=== PATIENT | male | born 1970 | race Caucasian/White ===

== ENCOUNTER 2020-06-02 03:57 | Emergency (ER) | payer MEDICAID ==
[~2020-06-02] VITALS: Ht 175.3 cm; Wt 81.2 kg
[2020-06-02 04:06] VITALS: BP 135/72
--- NOTE | 2020-06-02 04:10 | NUR ---
PT AMBULATED TO BED 03 WITH STEADY GAIT.
--- NOTE | 2020-06-02 04:27 | NUR ---
Dr. Baumann examining patient.
[2020-06-02] MEDS ORDERED: ONDANSETRON 4 MG/2 ML VIAL IVP ONE (04:35)
[2020-06-02] MEDS ORDERED: MORPHINE SULFATE 4 MG/ML SYR IVP ONE ×2 (04:35→06:15)
--- NOTE | 2020-06-02 04:37 | NUR ---
PT C/O R FLANK PAIN WITH PAINFUL URINATION X 2 DAYS. BLOOD IN URINE. +N/V, STATES HE'S HAD BLOOD IN HIS EMESIS, YESTERDAY HE VOMITED X 6. STATES PAIN IS 10/10 AND IS SHARP STABBING PAIN. DENIES ANY FEVERS. PT HAS HX OF PRIOR KIDNEY STONES. PT HAS STAGE 3 COLON CANCER WHICH HAS METASTISIZED, HE IS CURRENTLY UNDERGOING RADIATION AND CHEMO THERAPY. AFEBRILE, DENIES SOB. BED IN LOWEST POSITION AND SIDERAIL UP X 1. ALLERGIES - TORADOL, NSAIDS HX - HTN, COLON CA
--- NOTE | 2020-06-02 04:38 | NUR ---
URINE COLLECTED, DIP DONE RESULTS SHOWN TO MD HOLBROOK
--- NOTE | 2020-06-02 05:04 | NUR ---
IV ESTABLISHED, LABS DRAWN AND TAKEN TO LAB ALONG WITH UA
--- NOTE | 2020-06-02 05:19 | NUR ---
PT STATES PAIN NOW 05/20. MD HOLBROOK NOTIFIED
--- NOTE | 2020-06-02 05:48 | NUR ---
PT STATES PAIN HAS COME BACK 07/20, MD HOLBROOK AWARE, ERIKA OSUNA RECEIVED
[2020-06-02 06:09] LABS: BASOPHILS % (AUTO) 0.3 % (0.0-2.0); EOSINOPHILS % (AUTO) 0.8 % (0.0-4.0); HEMATOCRIT 33.3 % (36-52); HEMOGLOBIN 10.8 g/dL (12.0-18.0); LYMPHOCYTES # (AUTO) 1.2 K/uL (2.0-11.5); LYMPHOCYTES % (AUTO) 28.2 % (20.5-51.1); MEAN CORPUSCULAR HEMOGLOBIN 27 pg (27-31); MEAN CORPUSCULAR HGB CONC 32 g/dL (33-37); MEAN CORPUSCULAR VOLUME 84.5 fL (80-94); MONOCYTES # (AUTO) 0.4 K/uL (0.8-1.0); MONOCYTES % (AUTO) 8.6 % (1.7-9.3); NEUTROPHILS # (AUTO) 2.5 K/uL (1.8-7.7); NEUTROPHILS % (AUTO) 62.1 % (42.2-75.2); PLATELET COUNT (AUTO) 225 K/uL (140-450); RED BLOOD CELL COUNT(AUTO) 3.95 MIL/uL (4.20-6.10); WHITE BLOOD COUNT (AUTO) 4.1 K/uL (4.8-10.8)
[2020-06-02 06:32] LABS: ALBUMIN 4.3 g/dL (3.4-5.0); ANION GAP 12.4 (8-16); CARBON DIOXIDE 27.7 mmol/L (21-32); CREATININE 0.7 mg/dL (0.6-1.3); POTASSIUM 3.1 mmol/L (3.5-5.1); TOTAL BILIRUBIN 0.9 mg/dL (0.0-1.0)
[2020-06-02 06:36] LABS: APPEARANCE,URINE CLEAR (CLEAR); BILIRUBIN,URINE NEGATIVE (NEGATIVE); BLOOD, URINE 2+ (NEGATIVE); COLOR,URINE YELLOW (YELLOW); LEUKOCYTE ESTERASE ,URINE NEGATIVE (NEGATIVE); NITRITE, URINE NEGATIVE (NEGATIVE); UGLUCOSE NEGATIVE (NEGATIVE)
[2020-06-02 07:00] LABS: WBC,URINE 0-5 /HPF (0-5)
[2020-06-02 07:08] VITALS: BP 130/70
--- NOTE | 2020-06-02 07:12 | NUR ---
Patient discharged with v/s stable. Written and verbal after care instructions given and explained. Patient verbalized understanding. Ambulatory with steady gait. All questions addressed prior to discharge. Advised to follow up with PMD.
== END 2020-06-02 07:12 | disposition home or self-care (01) ==
LOC: MED 03:57
DX: G89.29 Other chronic pain (principal); R31.9 Hematuria, unspecified; R10.9 Unspecified abdominal pain; I10 Essential (primary) hypertension; Z85.038 Personal history of other malignant neoplasm of large intestine; Z88.8 Allergy status to other drugs, medicaments and biological substances
CPT/HCPCS: 36415; 74176; 80053; 81001; 85025; 87086; 96374; 96375; 96376; 99284; J2270; J2405

== ENCOUNTER 2020-06-03 15:09 | Emergency (ER) | payer MEDICAID ==
[~2020-06-03] VITALS: Ht 172.7 cm; Wt 83.0 kg
[2020-06-03 15:15] VITALS: BP 121/42
[2020-06-03] MEDS ORDERED: NACL 0.9% 1,000 ML IV ONE (15:43)
[2020-06-03] MEDS ORDERED: ONDANSETRON 4 MG/2 ML VIAL IVP ONE (15:45)
[2020-06-03] MEDS ORDERED: MORPHINE SULFATE 4 MG/ML SYR IVP ONE (15:45)
--- NOTE | 2020-06-03 15:45 | NUR ---
DR. WALKER AT BEDSIDE.
--- NOTE | 2020-06-03 16:01 | NUR ---
STAT BLOOD DRAWN AND GIVEN TO PHLEB FOR PATTERN MARKER
[2020-06-03 16:06] LABS: BASOPHILS % (AUTO) 0.3 % (0.0-2.0); HEMATOCRIT 31.2 % (36-52); HEMOGLOBIN 10.1 g/dL (12.0-18.0); LYMPHOCYTES # (AUTO) 1.2 K/uL (2.0-11.5); LYMPHOCYTES % (AUTO) 31.4 % (20.5-51.1); MEAN CORPUSCULAR HEMOGLOBIN 27 pg (27-31); MEAN CORPUSCULAR HGB CONC 32 g/dL (33-37); MEAN CORPUSCULAR VOLUME 84.8 fL (80-94); MONOCYTES # (AUTO) 0.4 K/uL (0.8-1.0); MONOCYTES % (AUTO) 11.1 % (1.7-9.3); NEUTROPHILS # (AUTO) 2.2 K/uL (1.8-7.7); NEUTROPHILS % (AUTO) 56.2 % (42.2-75.2); PLATELET COUNT (AUTO) 191 K/uL (140-450); RED BLOOD CELL COUNT(AUTO) 3.68 MIL/uL (4.20-6.10); RED CELL DISTRIBUTION WIDTH 18.6 % (11.6-13.7); WHITE BLOOD COUNT (AUTO) 3.9 K/uL (4.8-10.8)
--- NOTE | 2020-06-03 16:06 | NUR ---
49 Y/M PRESENTS TO ED C C/O R FLANK PAIN X 5 DAYS, WITH R GROIN HERNIA. PT REPORTS HE WAS SEEN IN THE ED X 5 DAYS AGO, HAD CT DONE AND TOLD THAT HERNIA "POPPED OUT" PTS HERNIA WAS MANIPULATED BY ERMMendy. PT ALSO REPORTS VOMITING BLOOD X 2 DAY. PT DENIES COUGH, SOB OR FEVER. DENEIS ANY DYSURIA OR HEMATURIA. PMH- STAGE 3 COLON CA, SPINAL CORD INJURY, APPENDECTOMY, STENT PLACED TO R KIDNEY
[2020-06-03 16:23] LABS: ANION GAP 15.1 (8-16); CARBON DIOXIDE 26.4 mmol/L (21-32); CREATININE 0.8 mg/dL (0.6-1.3); POTASSIUM 3.5 mmol/L (3.5-5.1)
[2020-06-03 16:28] LABS: ALBUMIN 3.8 g/dL (3.4-5.0); TOTAL BILIRUBIN 0.6 mg/dL (0.0-1.0)
--- NOTE | 2020-06-03 16:39 | NUR ---
PT UNABLE TO VOID AT THIS TIME, URINAL AT BEDSIDE.
--- NOTE | 2020-06-03 16:40 | NUR ---
NADR, PT REPORTS DECREASED PAIN
[2020-06-03 17:01] LABS: APPEARANCE,URINE CLEAR (CLEAR); BILIRUBIN,URINE NEGATIVE (NEGATIVE); BLOOD, URINE 2+ (NEGATIVE); COLOR,URINE YELLOW (YELLOW); LEUKOCYTE ESTERASE ,URINE NEGATIVE (NEGATIVE); NITRITE, URINE NEGATIVE (NEGATIVE); UGLUCOSE NEGATIVE (NEGATIVE)
[2020-06-03 17:06] LABS: RBC,URINE 11-20 (MOD) /HPF (0-5); WBC,URINE 0-5 /HPF (0-5)
[2020-06-03 17:25] VITALS: BP 121/42
--- NOTE | 2020-06-03 17:25 | NUR ---
Patient discharged with v/s stable. Written and verbal after care instructions given and explained. Patient alert, oriented and verbalized understanding of instructions. Ambulatory with steady gait. All questions addressed prior to discharge. ID band removed. Patient advised to follow up with PMD. Rx of NORCO, AND COALCE given. Patient educated on indication of medication including possible reaction and side effects. Opportunity to ask questions provided and answered.
== END 2020-06-03 17:25 | disposition home or self-care (01) ==
LOC: MED 15:09
DX: R10.9 Unspecified abdominal pain (principal); I10 Essential (primary) hypertension; Z90.49 Acquired absence of other specified parts of digestive tract; Z88.8 Allergy status to other drugs, medicaments and biological substances; Z85.038 Personal history of other malignant neoplasm of large intestine
CPT/HCPCS: 36415; 80053; 81001; 83690; 85025; 87086; 96361; 96374; 96375; 99284; J2270; J2405; J7030

== ENCOUNTER 2020-06-04 18:03 | Emergency (ER) | payer MEDICAID ==
[~2020-06-04] VITALS: Ht 175.3 cm; Wt 77.1 kg
[2020-06-04 18:13] VITALS: BP 124/59
--- NOTE | 2020-06-04 18:28 | NUR ---
PT ADMITS KNOWN TO HAVE KIDNEY STONES--SEEN THIS AM SAME COMPLAINT 0F FLANK PAIN, RIGHT INGUINAL PAIN ---PT ADDS UNABLE TO FILL HIS RX PERCOCETS AND PAIN HAS GOTTEN WORSE TO A POINT HE IS VOMITING BLOOD NOW--ALL DAY TODAY AFTER DC APPEAR JITTERY, UNABL TO STAY STILL IN [facility]
[2020-06-04 18:40] VITALS: BP 124/59
--- NOTE | 2020-06-04 18:41 | NUR ---
MD SPOKE WITH PT AT LENGTH IN ROOM---PT DID NOT WANT TO CONTINUE VISIT AND LEFT WITHOUT DC PAPERS---
== END 2020-06-04 18:41 | disposition home or self-care (01) ==
LOC: MED 18:03
DX: R10.9 Unspecified abdominal pain (principal); K92.0 Hematemesis; I10 Essential (primary) hypertension; Z85.038 Personal history of other malignant neoplasm of large intestine; Z98.890 Other specified postprocedural states; Z88.8 Allergy status to other drugs, medicaments and biological substances
CPT/HCPCS: 99281

== ENCOUNTER 2020-06-05 10:12 | Emergency (ER) | payer MEDICAID ==
[~2020-06-05] VITALS: Ht 175.3 cm; Wt 78.0 kg
[2020-06-05 10:21] VITALS: BP 134/84
[2020-06-05] MEDS ORDERED: MORPHINE SULFATE 4 MG/ML SYR IM ONE (10:35)
[2020-06-05 10:58] VITALS: BP 134/84
== END 2020-06-05 10:58 | disposition home or self-care (01) ==
LOC: MED 10:12
DX: K40.90 Unilateral inguinal hernia, without obstruction or gangrene, not specified as recurrent (principal); I10 Essential (primary) hypertension; Z87.442 Personal history of urinary calculi; Z98.890 Other specified postprocedural states; Z85.038 Personal history of other malignant neoplasm of large intestine; Z88.8 Allergy status to other drugs, medicaments and biological substances
CPT/HCPCS: 96372; 99283; J2270

== ENCOUNTER 2020-06-21 02:58 | Emergency (ER) | payer MEDICAID ==
[~2020-06-21] VITALS: Ht 175.3 cm; Wt 82.1 kg
[2020-06-21 03:09] VITALS: BP 143/96
[2020-06-21] MEDS ORDERED: PANTOPRAZOLE 40 MG INJ VIAL IVP ONE (03:30)
--- NOTE | 2020-06-21 03:52 | NUR ---
PT HAS STAGE 3 COLON CANCER, LAST RECEIVED RADIATION AND CHEMO ON 06/11/20, SINCE THAT TIME HE HAS BEEN HAVING INCREASING BACK AND BILATERAL LEG PAIN ALONG WITH GENERAL BODY ACHES, 07/20. ON WEDNESDAY HE STARTED VOMITING BLOOD, STARTS OUT BRIGHT RED THEN TURNS INTO GROUND GROUND TYPE VOMITUS. PT SAYS HE'S HAD NO APPETITIE AND HASN'T EATEN X 3 DAYS. DENIES BLOOD IN STOOLS, SAYS STOOLS ARE NORMAL AND DARK BROWN IN COLOR. RLQ PAINFUL UPON PALPATION. AFEBRILE, NO SOB, NO COUGH. PT TOOK MORPHINE 15MG ER AT 7PM WITH NO RELIEF. BED IN LOWEST POSITION AND SIDERAIL UP X 1. ALLERGIES - TORADOL, NSAIDS
--- NOTE | 2020-06-21 03:58 | NUR ---
BLOOD COLLECTED AND TAKEN TO LAB
[2020-06-21 04:05] LABS: BASOPHILS % (AUTO) 0.4 % (0.0-2.0); EOSINOPHILS % (AUTO) 0.8 % (0.0-4.0); HEMATOCRIT 30.8 % (36-52); LYMPHOCYTES # (AUTO) 0.8 K/uL (2.0-11.5); LYMPHOCYTES % (AUTO) 19.5 % (20.5-51.1); MEAN CORPUSCULAR HEMOGLOBIN 27 pg (27-31); MEAN CORPUSCULAR HGB CONC 32 g/dL (33-37); MEAN CORPUSCULAR VOLUME 84.7 fL (80-94); MONOCYTES # (AUTO) 0.6 K/uL (0.8-1.0); MONOCYTES % (AUTO) 13.7 % (1.7-9.3); NEUTROPHILS # (AUTO) 2.8 K/uL (1.8-7.7); NEUTROPHILS % (AUTO) 65.6 % (42.2-75.2); PLATELET COUNT (AUTO) 243 K/uL (140-450); RED BLOOD CELL COUNT(AUTO) 3.63 MIL/uL (4.20-6.10); WHITE BLOOD COUNT (AUTO) 4.3 K/uL (4.8-10.8)
[2020-06-21] MEDS ORDERED: ONDANSETRON 4 MG/2 ML VIAL IVP ONE (04:05)
[2020-06-21] MEDS ORDERED: MORPHINE SULFATE 4 MG/ML SYR IVP ONE (04:05)
[2020-06-21 04:15] LABS: ALBUMIN 3.9 g/dL (3.4-5.0); ANION GAP 13.7 (8-16); CARBON DIOXIDE 27.3 mmol/L (21-32); CREATININE 0.7 mg/dL (0.6-1.3); TOTAL BILIRUBIN 0.5 mg/dL (0.0-1.0)
--- NOTE | 2020-06-21 04:45 | NUR ---
Dr. Linda examining patient.
--- NOTE | 2020-06-21 04:51 | NUR ---
Patient discharged with v/s stable. Written and verbal after care instructions given and explained. Patient alert, oriented and verbalized understanding of instructions. Ambulatory with steady gait. All questions addressed prior to discharge. ID band removed. Patient advised to follow up with PMD. Rx of PROTONIX given. Patient educated on indication of medication including possible reaction and side effects. Opportunity to ask questions provided and answered.
[2020-06-21 04:52] VITALS: BP 115/65
--- NOTE | 2020-06-21 04:53 | NUR ---
CALLED [employer] FOR BUS PASS FOR PT. PT WAITING IN THE LOBBY
== END 2020-06-21 04:51 | disposition home or self-care (01) ==
LOC: MED 02:58
DX: K92.0 Hematemesis (principal); G89.29 Other chronic pain; I10 Essential (primary) hypertension; N20.0 Calculus of kidney; Z88.6 Allergy status to analgesic agent; Z85.9 Personal history of malignant neoplasm, unspecified
CPT/HCPCS: 36415; 80053; 85025; 96374; 96375; 99284; C9113; J2270; J2405

== ENCOUNTER 2020-07-04 12:44 | Emergency (ER) | payer MEDICAID ==
[~2020-07-04] VITALS: Ht 175.3 cm; Wt 77.1 kg
[2020-07-04 12:46] VITALS: BP 131/60
--- NOTE | 2020-07-04 12:51 | NUR ---
PATIENT AMBULATED TO BED 7.
--- NOTE | 2020-07-04 12:54 | NUR ---
49 y/o male from home c/o right flank pain radiating to right groin x 2 days. States 10/10 sharp, constant pain. States intermittent hematuria, denies dysuria. Right flank tender to palp, pt guarding right flank and groin. States he has hernia in groin and pain is increased there. Skin warm, dry, intact. Positioned for comfort. VSS medhx: HTN, colon cancer, Spinal cord surgery
--- NOTE | 2020-07-04 12:59 | NUR ---
Dr Hollis at bedside examining pt
[2020-07-04 13:13] VITALS: BP 131/60
--- NOTE | 2020-07-04 13:14 | NUR ---
Patient discharged with v/s stable. Written and verbal after care instructions given and explained. Patient verbalized understanding. Ambulatory with steady gait. All questions addressed prior to discharge. Advised to follow up with PMD. Pt given bus pass upon discharge
== END 2020-07-04 13:14 | disposition home or self-care (01) ==
LOC: MED 12:44
DX: R10.9 Unspecified abdominal pain (principal); F11.90 Opioid use, unspecified, uncomplicated; F17.200 Nicotine dependence, unspecified, uncomplicated; I10 Essential (primary) hypertension; N28.9 Disorder of kidney and ureter, unspecified; Z88.6 Allergy status to analgesic agent; Z85.9 Personal history of malignant neoplasm, unspecified; Z87.442 Personal history of urinary calculi; Z90.49 Acquired absence of other specified parts of digestive tract; Z71.6 Tobacco abuse counseling; Z98.890 Other specified postprocedural states
CPT/HCPCS: 99281